=== PATIENT | male | born 1990 | race Caucasian/White ===

== ENCOUNTER → 2021-08-04 | Outpatient (CLI) | payer OTHER ==
--- NOTE | 2021-08-04 15:02 | RAD ---
EXAM: Left ankle, 3 views. HISTORY: Pain. COMPARISON: None. FINDINGS: 3 views of the left ankle are obtained. There is no fracture, dislocation or subluxation. T he ankle mortise is intact. There is a small corticated ossicle inferior to the medial malleolus. IMPRESSION: No acute osseous finding. Electronically signed by: Viviane Mo MD (08/04/2021 3:00 PM) [id number]
== END ==
LOC: RAD 14:20
PROVIDERS: ATTEND Nurse Practitioner Family
DX: M25.572 Pain in left ankle and joints of left foot (principal)
CPT/HCPCS: 73610